=== PATIENT | male | born 1990 | race Caucasian/White ===

== ENCOUNTER 2021-01-01 19:32 | Emergency (ER) | payer SELFPAY ==
[2021-01-01] VITALS (11 sets, daily range): BP systolic 123–127; BP diastolic 69–73; PULSE 84–93; RESP 19–25; TEMP 37.6; O2SAT 91–96
--- NOTE | 2021-01-01 19:45 | RT.EKG_ITS ---
APPROVED REPORT Exam: Resting ECG Patient Location: E HR:88 bpm ECG Measurements Heart Rate 88 AXIS WI 175 P 38 QRSd 79 QRS 57 QT 354 T -9 QTc 428 Conclusion Sinus rhythm...normal P axis, V-rate 60- 99 Probable left atrial enlargement...P >50mS, <-0.10mV V1
[2021-01-01] MEDS: Normal Saline 1,000 ML 1000 ML IV (20:10)
[2021-01-01 20:38] LABS: Abs Immature Grans 0.02 10^3/uL (0.0-0.06); Absolute Basophil Count 0.01 10^3/uL (0.0-0.2); Absolute Lymphocyte Count 1.01 10^3/uL (1.2-3.4); Absolute Neutrophil Count 4.31 10^3/uL (1.2-6.7); Basophils % 0.2; HGB 15.8 g/dL (13.5-17.5); Immature Grans % 0.4; Lymphocytes % 17.9; MCH 31.3 pg (27.0-33.0); MCHC 34.3 % (32.0-36.0); MCV 91.1 fL (80-95); MPV 12.4 fL (8.0-11.0); Monocytes % 5.3; Neutrophils % 76.2; Nucleated RBC 0 %; Platelet Count 135 10^3/uL (130-400); RBC 5.05 10^6/uL (4.36-5.78); RDW 11.7 % (11.8-14.1); RDW-SD 39.5 fL; WBC 5.65 10^3/uL (4.4-10.8)
--- NOTE | 2021-01-01 20:45 | DI.RAD_ITS ---
EXAM: XR PORTABLE CHEST AP CLINICAL HISTORY: sob, covid. TECHNIQUE: 2D digital imaging was performed. COMPARISON: No exams were available for comparison FINDINGS: Chest leads in place. Heart size is normal mediastinum is not widened. Mild infiltrate in the left lung base noted. Possible small amount left pleural fluid. Right lung is clear. No pneumothorax. IMPRESSION: Small left pleural effusion. Mild infiltrate left lung base. DATA REPOSITORY: RADIATION DOSE DELIVERED: All CT scans at this facility use at least one of these dose optimization techniques: automated exposure control; mA and/or kV adjustment per patient size (includes targeted e xams where dose is matched to clinical indication); or iterative reconstruction.
[2021-01-01 21:00] LABS: ALT 166 U/L (16-63); AST 67 U/L (15-37); Albumin 3.4 g/dL (3.4-5.0); Alkaline Phosphatase 78 U/L (46-116); Anion Gap 7.2 mmol/L (3-11); BUN 12 mg/dL (7-18); Bilirubin, Total 0.5 mg/dL (0.2-1.0); CO2 26.8 mmol/L (21.0-32.0); CREATININE 1.1 mg/dL (0.70-1.30); Calcium 7.6 mg/dL (8.5-10.1); Chloride 103 mmol/L (98-107); Glucose 110 mg/dL (74-106); Potassium 3.3 mmol/L (3.5-5.1); Sodium 137 mmol/L (136-145); Total Protein 7.2 g/dL (6.4-8.2)
--- NOTE | 2021-01-01 21:22 | ED.GENADUL_ITS ---
Discharge Plan Disposition Patient Disposition: HOME Condition: Stable Discharge Details Clinical Impression: Pneumonia due to COVID-19 virus Primary Care Provider: Lamin Orta ED Provider: Cadence Hastings Discharge Instructions Instructions: Hypokalemia (ED), Pneumonia (ED) Additional Instructions: Increase potassium in your diet, bananas, multivitamin Have your chemistry rechecked by her primary care physician when you have completed your isolation Stay hydrated, I have given you a pulse oximeter, if your oxygen drops below 90%, you should return for reevaluation, they have a pulse oximeter in place for several minutes as sometimes it can take a minute or 2 for it to read accurately You have not been supplied an antibiotic as this is a viral pneumonia Please return should you develop new or worsening complaints I suspect you had a fainting spell or syncopal event secondary to being ill and the steaming water, and if you do have another episode, you should be evaluated and possibly set up with a Holter monitor at the discretion of your primary care physician Discharge Data Discharge Date/Time-TO BE ENTERED AT DEPARTURE: 01/01/21 21:50 Medical Decision Making Patient is alert, oriented, of decisional capacity, neurologically intact I suspect his event was vasovagal in nature Concern for pulmonary embolism, EKG without acute abnormality, diagnostic labs reassuring We will supplement potassium at home Instructed to follow-up with primary care physician, discussed Holter monitor as needed in the outpatient setting Will need to have his chemistry rechecked by his primary care physician, we did have discussion regarding the No evidence of neurogenic syncope, patient completely neurologically intact No clinical evidence of seizure, no tongue injury, no incontinence of urine, no prior history Was completely alert and oriented postevent Patient discharged home in stable condition with stable vitals, ambulatory with steady gait Will maintain isolation status Recheck of primary care physician in 24 hours recommended Differential Diagnosis Differential Diagnosis: Vasovagal syncope, pulmonary embolism, electrolyte abnormality, neurogenic Medical Records Medical records reviewed: Yes I reviewed the patient's medical records. Lab Data Lab results reviewed: Yes I reviewed the patient's lab results. HPI This 30-year-old male presents status. Syncope versus seizure. Patient reportedly tested Covid positive on 6 for the past 4 days. He states that his family placed a steam bath for him secondary to his congestion and after several minutes of inhaling it, he felt like he might pass out. Per family, he fell and grabbed, he did not hit his head as he was lowered. There is some question of movement. Patient states the episode lasted several seconds he was told. He denies any tongue injury or incontinence. He denies her history of similar symptoms in the past. He denies any known fever or chills today. He denies any additional complaints this time. He is not anticoagulated. He denies any nausea or vomiting. He does have some mild shortness of breath consistent with his recent Covid diagnosis states that this is not worsening for him. Denies any chest pain General Date/Time Provider Initiated Documentation: 01/01/21 19:53 . Stated Complaint: Dizzy/Sync JORGE: 2 Review of Systems Narrative: ROS obtained x7 aside from where indicated in HPI PFSH Social History Smoking/Tobacco Use Status: Never Smoking risk assessment performed?: Yes Alcohol Intake: current Alcohol Intake frequency: a few times a week Alcohol type: beer and hard liquor Drug use: Never Substance use type: does not use Do you feel safe at home: Yes Do you feel safe in your relationship?: Yes Exam Const General: cooperative, comfortable and no acute distress HENMT Other: Uvula midline, moist mucous membranes Eyes Pupils: PERRL EOM: EOM intact bilaterally Neck Neck: full ROM Chest Chest: normal inspection of the chest Resp Effort & Inspection: normal respiratory effort Cardio Rate: regular rate Rhythm: regular rhythm General: CVA tenderness Skin General skin exam: no rashes or lesions noted Neuro General: patient alert and patient oriented x3 Cranial Nerves: CN's II-XI intact bilaterally Cognition: normal cognition Speech: speech normal Gait: normal gait Motor: strength 5/5 throughout Sensory Exam: no sensory deficits noted Course Vital Signs Vital signs: Pain Level 0 01/01/21 19:40 Lab/Test Results Lab/Test Results: Laboratory Tests Range/Units 01/01/21 01/01/21 01/01/21 20:08 20:10 20:10 WBC (4.4-10.8) 10^3/uL 5.65 RBC (4.36-5.78) 10^6/uL 5.05 Hgb (13.5-17.5) g/dL 15.8 Hct (40.0-50.0) % 46.0 MCV (80-95) fL 91.1 MCH (27.0-33.0) pg 31.3 MCHC (32.0-36.0) % 34.3 RDW (11.8-14.1) % 11.7 L Plt Count (130-400) 10^3/uL 135 MPV (8.0-11.0) fL 12.4 H Immature Gran % 0.4 Neutrophils % 76.2 Lymphocytes % 17.9 Monocytes % 5.3 Eosinophils % 0.0 Basophils % 0.2 Nucleated RBC % % 0 Absolute Neutrophils (1.2-6.7) 10^3/uL 4.31 Absolute Lymphocytes (1.2-3.4) 10^3/uL 1.01 L Absolute Monocytes (0.1-0.8) 10^3/uL 0.30 Absolute Eosinophils (0.0-0.7) 10^3/uL 0.00 Absolute Basophils (0.0-0.2) 10^3/uL 0.01 Sodium (136-145) mmol/L 137 Potassium (3.5-5.1) mmol/L 3.3 L Chloride (98-107) mmol/L 103 Carbon Dioxide (21.0-32.0) mmol/L 26.8 Anion Gap (3-11) mmol/L 7.2 BUN (7-18) mg/dL 12 Creatinine (0.70-1.30) mg/dL 1.1 Estimated GFR/1.73 m2 (mL/min/1.73m2) >= 60.00 Glucose (74-106) mg/dL 110 H Calcium (8.5-10.1) mg/dL 7.6 L Total Bilirubin (0.2-1.0) mg/dL 0.5 AST (15-37) U/L 67 H ALT (16-63) U/L 166 H Alkaline Phosphatase (46-116) U/L 78 Total Protein (6.4-8.2) g/dL 7.2 Albumin (3.4-5.0) g/dL 3.4 COVID-19 Source Cancelled SARS-CoV-2 (PCR) Cancelled
--- NOTE | 2021-01-01 21:35 | DI.VRAD_ITS ---
PROCEDURE INFORMATION: Exam: XR Chest Exam date and time: 01/01/2021 8:10 PM Age: 30 years old Clinical indication: Patient HX: Shortness of breath. Covid TECHNIQUE: Imaging protocol: XR of the chest. Views: 1 view. COMPARISON: No relevant prior studies available. FINDINGS: Lungs: Patchy opacities in the lower left lung are concerning for pneumonia. Pleural spaces: Possible small left pleural effusion. Heart/Mediastinum: Unremarkable. No cardiomegaly. Bones/joints: Unremarkable. IMPRESSION: Probable left lower lobe pneumonia and small left pleural effusion. Dictated and Authenticated by: Ben Mak MD. Ordering:RICHMOND Vila MD
== END 2021-01-01 21:50 | disposition home or self-care (01) ==
PROVIDERS: Emergency Provider Physician Assistant; PCP Physician Assistant
DX: U07.1 COVID-19 (principal); J12.82 Pneumonia due to coronavirus disease 2019; E87.6 Hypokalemia
CPT/HCPCS: 36415; 80053; 87040; 87635; 93005; 96360; 99285; 71045; 85025; 93010; 99284

== ENCOUNTER 2021-09-02 12:04 | Outpatient (REF) | payer SELFPAY ==
[2021-09-05 12:48] LABS: COVID-19 RT-PCR UVMMC Result Negative (Negative)
== END 2021-09-02 12:05 | disposition home or self-care (01) ==
LOC: NCHCN 12:04
PROVIDERS: PCP Physician Assistant; Visit Provider Nurse Practitioner Family
DX: Z20.822 Contact with and (suspected) exposure to COVID-19 (principal); J06.9 Acute upper respiratory infection, unspecified
CPT/HCPCS: U0003

== ENCOUNTER 2024-07-23 01:29 | Outpatient (CLI) | payer BC, SELFPAY ==
--- NOTE | 2024-07-23 | DI.RAD_ITS ---
Exam(s) XR CHEST 2V PA LATERAL EXAM: XR CHEST 2V PA LATERAL CLINICAL HISTORY: ACUTE BRONCHITIS, J20.9 TECHNIQUE: 2D digital imaging was performed. Two views. COMPARISON: CR,XR XR PORTABLE CHEST AP from 01/01/2021 FINDINGS: HEART: Normal size. Aorta: Not dilated. PULMONARY VASCULATURE: Normal. MEDIASTINUM: Unremarkable. LUNGS: Patchy infiltrate seen at the medial left lung base. Lungs are otherwise clear. PLEURAL SPACE: No pleural effusion or pneumothorax. BONE:Unremarkable for age. SOFT TISSUES: Unremarkable. IMPRESSION: Left lower lobe infiltrate. DATA REPOSITORY: RADIATION DOSE DELIVERED:
== END 2024-07-23 01:49 ==
LOC: DI 01:29
PROVIDERS: PCP Physician Assistant; Visit Provider Family Medicine
DX: J20.9 Acute bronchitis, unspecified (principal)
CPT/HCPCS: 71046